=== PATIENT | male | born 1930 | race Caucasian/White ===

== ENCOUNTER → 2017-08-23 | Day surgery (SDC) | payer MEDICARE, OTHER ==
[~2017-08-23] VITALS: Ht 170.2 cm; Wt 70.0 kg
[~2017-08-23] MED LIST: AMLO10TA2 PO; AMPICILLIN/SULBAC 3 GM/NS 100 ML IV PRN; CALC0.25 PO; CHLORHEXIDINE GLUCONATE 2 % 1 PACK (2 CLOTHS) TOPICAL PRN; INSULIN HUMAN REGULAR 1,000 UNITS/10 ML VIAL SQ PRN; LACTATED RINGER'S 1000 ML IV PRN; LIDOCAINE 1%/EPINEPHrine 1:100,000 SOLN 30 ML VIAL ONE; LIDOCAINE-PRILOCAIN 2.5% CREAM 5 GM TUBE TOPICAL PRN; METOPROLOL TARTRATE 25 MG TAB PO PRN; MUPIROCIN 2% OINT 22 GM TUBE ONE; POVIDONE IODINE 5% (ANTISEPSIS KIT) 4 APPLICATIONS EACH NARE PRN; SODIUM CHLORID 0.9% 500 ML IV PRN; TOBRO EACH EYE
[2017-08-23 14:15] VITALS: TEMP 98.2
[2017-08-23 14:45] VITALS: BP 113/46; PULSE 85; RESP 16; O2SAT 99
--- NOTE | 2017-09-15 10:03 | MP ---
cc: NUVIA DYER M.D. DATE OF OPERATION August 23, [address] Nuvia Dyer PREOPERATIVE DIAGNOSIS Malignant cutaneous lesion right postauricular scalp. POSTOPERATIVE DIAGNOSIS Malignant cutaneous lesion right postauricular scalp. OPERATION PERFORMED 1. Wide local excision of malignant lesion right postauricular scalp. 2. Complex closure of cutaneous defect right postauricular scalp. INDICATIONS Documented in the history and physical. DESCRIPTION OF OPERATION The patient was taken to OR #2 and placed in the supine position. Prior to entry in the operating room his area of lesion on the right scalp had been treated for over one hour with a thick coating of EMLA cream to the area of the lesion for topical anesthesia. Prior to prep he was then further injected with lidocaine in the area of the lesion, a total of 6 mL in the right postauricular scalp in the area involved by the lesion. He was then prepped and draped for surgery. Wide local excision was completed of a 3.5 cm lesion. This was approximately 5 cm in its longest dimension. This was passed off the field for histological examination. Using needle tip Bovie cautery hemostasis was obtained on the margins of the defect. We then undermined in all directions approximately 2 cm to allow for closure. It was then closed in layers using 3-0 Vicryl subcutaneous and then interrupted sutures of 4-0 nylon in the skin. The defect was then covered with mupirocin ointment and the procedure was terminated. The patient was reversed from anesthesia and taken to Recovery in good condition. There were no complications. Blood loss was 59 mal and the report on Raulito done MD ALIREZA Krishnamurthy/TODD /8:39 AM /9:59 AM
== END | disposition home or self-care (01) ==
LOC: PHSDC 08:12
PROVIDERS: ATTEND Otolaryngology
DX: L82.1 Other seborrheic keratosis (principal); H60.313 Diffuse otitis externa, bilateral; H72.01 Central perforation of tympanic membrane, right ear; H73.001 Acute myringitis, right ear; H61.23 Impacted cerumen, bilateral
CPT/HCPCS: 88305